=== PATIENT | male | born 1995 | race Caucasian/White ===

== ENCOUNTER 2017-07-01 11:03 | Emergency (ER) | payer OTHER | END 2017-07-01 13:18 | disposition home or self-care (01) | LOC: M ED 11:03 | DX: M77.9 Enthesopathy, unspecified (principal); F17.200 Nicotine dependence, unspecified, uncomplicated | CPT/HCPCS: 73630 ==

== ENCOUNTER 2017-08-23 20:47 | Emergency (ER) | payer OTHER ==
[2017-08-23] MEDS: AMOXICILLIN 500 MG CAP PO (23:17)
[2017-08-23] MEDS: NORCO, ANEXSIA 5/325MG TABLET (HYDROcodone/ACETAMINOPHEN) PO (23:18)
== END 2017-08-23 23:21 | disposition home or self-care (01) ==
LOC: M ED 20:47
DX: K13.79 Other lesions of oral mucosa (principal); F41.9 Anxiety disorder, unspecified; F17.210 Nicotine dependence, cigarettes, uncomplicated
CPT/HCPCS: 99282

== ENCOUNTER 2021-02-12 01:04 | Emergency (ER) | payer OTHER ==
[~2021-02-12] VITALS: Ht 185.4 cm; Wt 126.2 kg
[~2021-02-12 01:04] MED LIST: AMOX500T PO; HYDR-3715 PO; IBUP-1022 PO; IBUP-1114 PO; NAPR-837 PO; TYLE325T5 PO; no historical meds
--- OUTSIDE RECORDS SUMMARY | 2021-02-12 01:17 | CCD ---
Author Author [facility] Organization [facility] Address Unknown Phone Unavailable Care Team Providers Care Nitrating Acid Mixer Name Role Phone Karen Chauhan Unavailable Unavailable Chauhan, Karen Sim PA Unavailable Unavailable Chauhan, Karen Sim PA Unavailable Unavailable Chauhan, Karen Sim PA Unavailable Unavailable Chauhan, Karen Sim PA Unavailable Unavailable Chauhan, Karen Sim PA Unavailable Unavailable Chauhan, Karen Sim PA Unavailable Unavailable Chauhan, Karen Sim PA Unavailable Unavailable Chauhan, Karen Weeksn PA Unavailable Unavailable Chauhan, Karen Weeksn PA Unavailable Unavailable Re-disclosure Warning The records that you are about to access may contain information from federally-assisted alcohol or drug abuse programs. If such information is present, then the following federally mandated warning applies: This information has been disclosed to you from records protected by federal confidentiality rules (42 CFR part 2). The federal rules prohibit you from making any further disclosure of this information unless further disclosure is expressly permitted by the written consent of the person to whom it pertains or as otherwise permitted by 42 CFR part 2. A general authorization for the release of medical or other information is NOT sufficient for this purpose. The Federal rules restrict any use of the information to criminally investigate or prosecute any alcohol or drug abuse patient.The records that you are about to access may contain highly sensitive health information, the redisclosure of which is protected by Article 27-F of the [facility] Public Health law. If you continue you may have access to information: Regarding HIV / AIDS; Provided by facilities licensed or operated by the [facility] Office of Mental Health; or Provided by the [facility] Office for People With Developmental Disabilities. If such information is present, then the following [facility] mandated warning applies: This information has been disclosed to you from confidential records which are protected by state law. State law prohibits you from making any further disclosure of this information without the specific written consent of the person to whom it pertains, or as otherwise permitted by law. Any unauthorized further disclosure in violation of state law may result in a fine or shelter sentence or both. A general authorization for the release of medical or other information is NOT sufficient authorization for further disc losure. Family History Family Member Name Family Member Gender Family Member Status Date o f Status Description Data Source(s) Unknown Unknown Problem [facility] ([facility]) Unknown Unknown Problem [facility] ([facility]) Encounters Encounter Providers Location Date Indications Data Source(s ) Outpatient Attender: Chiquis salgado 07/01/2020 10:30:00 AM EST [facility] ([facility]) Medications Medication Brand Name Start Date Product Form Dose Route Admi nistrative Instructions Pharmacy Instructions Status Indications Reaction Description Data Source(s) Nicotine 4 MG Chewing Gum Nicotine 07/01/2020 12:00:00 AM EST active [facility] ([facility]) Insurance Providers Payer name Policy type / Coverage type Policy ID Covered constitution party ID Covered constitution party's relationship to gan Policy Gan Plan Information [facility] COMM[facility] [id number] SP [id number] [facility]) O [id number] S [id number] [facility]/Community [facility] Health Maintenance Organization (HMO) [id number] Self [facility] COMM PLAN [id number] 18 [id number] Problems, Conditions, and Diagnoses No Information Surgeries/Procedures No Information Results ID Date Data Source [id number] 07/01/2020 12:00:00 AM EST LADI Name Value Range Interpretation Code Description Data Alessandra rce(s) Supporting Document(s) SARS-CoV2 Rapid Antigen Negative [facility] This lab was reported by [facility]. Procedure Social History No Information Vital Signs ID Date Data Source UNK Name Value Range Interpretation Code Description Data Source(s) Systolic blood pressure 135 mm[Hg] 135 mm[Hg] [facility] ([facility]) Diastolic blood pressure 90 mm[Hg] 90 mm[Hg] [facility] ([facility]) Heart rate 108 /min 108 /min [facility] ([facility]) Respiratory rate 18 /min 18 /min [facility] ( [facility]) Oxygen saturation in Arterial blood by Pulse oximetry 98 % 98 % [facility] ([facility]) Body temperature 99.8 [degF] 99.8 [degF] [facility] ([facility]) Body weight 245.00 [lb_av] 245.00 [lb_av] [facility] ([facility]) Body height 73 [in_i] 73 [in_i] [facility] ([facility]) 6'1" Body mass index (BMI) [Ratio] 32.3 kg/m2 32.3 k g/m2 [facility] ([facility])
[2021-02-12 02:31] LABS: RSV AMPLIFICATION NEGATIVE (NEGATIVE)
[2021-02-12 05:21] VITALS: BP 138/85
--- OUTSIDE RECORDS SUMMARY | 2021-02-12 05:37 | CCD ---
Author Author [facility] Organization [facility] Address Unknown Phone Unavailable Care Team Providers Care Green End Worker Name Role Phone Karen Chauhan Unavailable Unavailable Chauhan, Karen Sim PA Unavailable Unavailable Chauhan, Karen Sim PA Unavailable Unavailable Chauhan, Karen Sim PA Unavailable Unavailable Chauhan, Karen Sim PA Unavailable Unavailable Chauhan, Karen Sim PA Unavailable Unavailable Chauhan, Karen Sim PA Unavailable Unavailable Chauhan, Kraen Sim PA Unavailable Unavailable Chauhan, Karen Weeksn [...] is protected by Article 27-F of the [facility] Public Health law. If you continue you may have access to information: Regarding HIV / AIDS; Provided by facilities licensed or operated by the [facility] Office of Mental Health; or Provided by the [facility] Office for People With Developmental Disabilities. If such information is present, then the following [facility] mandated warning applies: This information has been [...] law may result in a fine or residential sentence or both. A general authorization for the release of medical or other information is NOT sufficient authorization for further disc losure. Family History Family Member Name Family Member Gender Family Member Status Date o f Status Description Data Source(s) Unknown Unknown Problem [facility] ([facility]) Unknown Unknown Problem [facility] Encounters Encounter Providers Location Date Indications Data Source(s ) Outpatient Attender: Chiquis salgado 07/01/2020 10:30:00 AM EST [facility] ([facility] Medications Medication Brand Name Start Date Product Form Dose Route Admi nistrative Instructions Pharmacy Instructions Status Indications Reaction Description Data Source(s) Nicotine 4 MG Chewing Gum Nicotine 07/01/2020 12:00:00 AM EST active [facility] Insurance Providers Payer name Policy type / Coverage type Policy ID Covered libertarian ID Covered libertarian's relationship to gan Policy Gan Plan Information [facility] [place] [facility] [id number] SP [id number] [facility]) O [id number] S [id number] [facility] Health Maintenance Organization (HMO) [id number] Self [facility] COMM PLAN [id number] Problems, Conditions, and Diagnoses No Information Surgeries/Procedures No Information Results ID Date Data Source [id number] 07/01/2020 12:00:00 AM EST LADI Name Value Range Interpretation Code Description Data Alessandra rce(s) Supporting Document(s) SARS-CoV2 Rapid Antigen Negative [facility] This lab was reported by [facility]. Procedure Social History No Information Vital Signs ID Date Data Source UNK Name Value Range Interpretation Code Description Data Source(s) Systolic blood pressure 135 mm[Hg] 135 mm[Hg] [facility] ([facility]) Diastolic blood pressure 90 mm[Hg] 90 mm[Hg] [facility] ([facility]) Heart rate 108 /min 108 /min [facility] ([facility]) Respiratory rate 18 /min 18 /min [facility] ( [facility]) Oxygen saturation in Arterial blood by Pulse oximetry 98 % 98 % [facility] ([facility]) Body temperature 99.8 [degF] 99.8 [degF] [facility] ([facility]) Body weight 245.00 [lb_av] 245.00 [lb_av] [facility] ([facility]) Body height 73 [in_i] 73 [in_i] [facility] ([facility]) 6'1" Body mass index (BMI) [Ratio] 32.3 kg/m2 32.3 k g/m2 [facility] ([facility])
== END 2021-02-12 05:54 | disposition home or self-care (01) ==
LOC: M ED 01:04
DX: J06.9 Acute upper respiratory infection, unspecified (principal); F17.200 Nicotine dependence, unspecified, uncomplicated; F12.10 Cannabis abuse, uncomplicated